=== PATIENT | female | born 1955 | race American Indian/Alaskan Native ===

== ENCOUNTER 2021-05-06 14:51 | Emergency (ER) | payer MEDICARE, MEDICAID ==
[2021-05-06 16:33] LABS: Hematocrit 38.8 % (30.3-42.9); Hemoglobin 12.6 gm/dl (10.1-14.3); Mean Corpuscular HGB Conc 33 % (30-34); Mean Corpuscular Volume 90 fl (79-97); Platelet Count 179 K/mm3 (140-440); Red Blood Count 4.34 M/mm3 (3.65-5.03)
[2021-05-06 16:47] LABS: Alanine Aminotransferase 125 units/L (7-56); Albumin 3.6 g/dL (3.9-5); BUN/Creatinine Ratio 16; Blood Urea Nitrogen 14 mg/dL (7-17); Calcium 10.2 mg/dL (8.4-10.2); Hemolysis Index 1
[2021-05-06 17:12] VITALS: BP 120/75
[2021-05-06 17:15] LABS: Bacteria,Urine 1+ /HPF (Negative); Bilirubin,Urine MOD (Negative); Blood,Urine NEG (Negative); Color,Urine Amber (Yellow); Hyaline Casts,Urine 25 /LPF; Mucus,Urine 3+ /HPF
[2021-05-06 17:22] LABS: Ictotest,Urine Positive (Negative)
--- NOTE | 2021-05-06 18:32 | Cat Scan Report ---
CT ABDOMEN AND PELVIS WITH CONTRAST INDICATION: n/v, epigastric abd pain 100 ML OMNI 300 . TECHNIQUE: Axial CT images were obtained through the abdomen and pelvis after 100 cc IV contrast. All CT scans at this location are performed using CT dose reduction for ALARA by means of automated exposure contr ol. COMPARISON: None available. FINDINGS: LOWER CHEST: No significant abnormality. LIVER: No significant abnormality. GALLBLADDER: Cholelithiasis BILE DUCTS: No significant abnormality. PANCREAS: No significant abnormality. SPLEEN: No significant abnormality. ADRENALS: No significant abnormality. RIGHT KIDNEY and URETER: No significant abnormality. LEFT KIDNEY and URETER: No significant abnormality. STOMACH and SMALL BOWEL: Donny-en-Y gastric bypass. COLON: No significant abnormality. APPENDIX: No significant abnormality. PERITONEUM: No free fluid. No free air. No fluid collection. LYMPH NODES: No significant adenopathy. AORTA and ARTERIES: No significant abnormality. IVC and VEINS: No significant abnormality. URINARY BLADDER: No significant abnormality. REPRODUCTIVE ORGANS: No significant abnormality. ADDITIONAL FINDINGS: None. SKELETAL SYSTEM: Mild to moderate scoliosis of lumbar spine with posterior fusion hardware L4-5. Mode rate degenerative arthrosis both hips IMPRESSION: 1. Cholelithiasis without CT evidence for cholecystitis. Signer Name: Robbi Diaz MD Signed: 05/06/2021 6:27 PM Workstation Name: [email or web address]
--- NOTE | 2021-05-06 19:26 | Emergency Department Report ---
ED General Adult HPI - General Chief complaint: Urogenital-Female Stated complaint: WEAKNESS, DEHYDRATED, HEADACHE, VOMITING Time Seen by Provider: 05/06/21 17:11 Source: patient Mode of arrival: Ambulatory Limitations: No Limitations - History of Present Illness Initial comments: Patient is a 65-year-old female presents emergency room complaints of fatigue and generalized weakness that began a month ago. States that she is also having intermittent vomiting. She states that it does not occur every day but every once in a while she had will have 1-2 episodes of vomiting. States that she began having diarrhea approximately 3 days ago. States that she has been having upper abdominal discomfort. she is also having suprapubic discomfort with uri [place]. She denies any fever, melena, hematochezia, hematemesis, dysuria, back pain, CP, SOB. She denies any medication allergies. - Related Data Previous Rx's Medication Instructions Recorded Last Taken Type Hyoscyamine Subl [Levsin Sl 0.125 0.125 mg SL Q6HR PRN #10 tab 05/06/21 Unknown Rx TAB] Ondansetron [Zofran Odt] 4 mg PO Q8HR PRN #10 tab.rapdis 05/06/21 Unknown Rx cephALEXin [Keflex] 500 mg PO BID 7 Days #14 cap 05/06/21 Unknown Rx ED Review of Systems ROS: Stated complaint: WEAKNESS, DEHYDRATED, HEADACHE, VOMITING Other details as noted in HPI Comment: All other systems reviewed and negative ED Past Medical Hx - Medications Home Medications: Home Medications Medication Instructions Recorded Confirmed Last Taken Type Hyoscyamine Subl [Levsin Sl 0.125 0.125 mg SL Q6HR PRN #10 tab 05/06/21 Unknown Rx TAB] Ondansetron [Zofran Odt] 4 mg PO Q8HR PRN #10 tab.rapdis 05/06/21 Unknown Rx cephALEXin [Keflex] 500 mg PO BID 7 Days #14 cap 05/06/21 Unknown Rx ED Physical Exam - General Limitations: No Limitations General appearance: alert, in no apparent distress - Head Head exam: Present: atraumatic, normocephalic - Eye Eye exam: Present: normal appearance - ENT ENT exam: Present: mucous membranes moist - Respiratory Respiratory exam: Present: normal lung sounds bilaterally. Absent: respiratory distress, wheezes, rales, rhonchi, stridor, chest wall tenderness, accessory muscle use, decreased breath sounds, prolonged expiratory - Cardiovascular Cardiovascular Exam: Present: regular rate, normal rhythm, normal heart sounds. Absent: systolic murmur, diastolic murmur, rubs, gallop - GI/Abdominal GI/Abdominal exam: Present: soft, tenderness (epigastric, RUQ), normal bowel sounds. Absent: distended, guarding, rebound, rigid - Neurological Exam Neurological exam: Present: alert, oriented X3 - Psychiatric Psychiatric exam: Present: normal affect, normal mood - Skin Skin exam: Present: warm, dry, intact ED Course Vital Signs 05/06/21 15:34 Temperature 97.4 F L Pulse Rate 95 H Respiratory 16 Rate Blood Pressure 120/75 O2 Sat by Pulse 99 Oximetry ED Medical Decision Making - Lab Data Result diagrams: 05/06/21 16:04 05/06/21 16:04 Lab Results 05/06/21 05/06/21 05/06/21 Range/Units 16:04 16:04 Unknown WBC 4.1 L (4.5-11.0) K/mm3 RBC 4.34 (3.65-5.03) M/mm3 Hgb 12.6 (10.1-14.3) gm/dl Hct 38.8 (30.3-42.9) % MCV 90 (79-97) fl MCH 29 (28-32) pg MCHC 33 (30-34) % RDW 16.0 H (13.2-15.2) % Plt Count 179 (140-440) K/mm3 Sodium 140 (137-145) mmol/L Potassium 4.2 (3.6-5.0) mmol/L Chloride 105.8 (98-107) mmol/L Carbon Dioxide 22 (22-30) mmol/L Anion Gap 16 mmol/L BUN 14 (7-17) mg/dL Creatinine 0.9 (0.6-1.2) mg/dL Estimated GFR > 60 ml/min BUN/Creatinine Ratio 16 % Glucose 98 (65-100) mg/dL Calcium 10.2 (8.4-10.2) mg/dL Total Bilirubin 1.00 (0.1-1.2) mg/dL AST 60 H (5-40) units/L ALT 125 H (7-56) units/L Alkaline Phosphatase 278 H (35-129) units/L Total Protein 7.5 (6.3-8.2) g/dL Albumin 3.6 L (3.9-5) g/dL Albumin/Globulin Ratio 0.9 % Urine Color Lexy (Yellow) Urine Turbidity Slightly-cloudy (Clear) Urine pH 5.0 (5.0-7.0) Ur Specific [place] 1.031 H (1.003-1.030) Urine Protein 100 mg/dl (Negative) mg/dL Urine Glucose (UA) Neg (Negative) mg/dL Urine Ketones Tr (Negative) mg/dL Urine Blood Neg (Negative) Urine Nitrite Neg (Negative) Urine Bilirubin Mod (Negative) Urine Ictotest Positive (Negative) Urine Urobilinogen 4.0 (<2.0) mg/dL Ur Leukocyte Esterase Sm (Negative) Urine WBC (Auto) 19.0 H (0.0-6.0) /HPF Urine RBC (Auto) 4.0 (0.0-6.0) /HPF U Epithel Cells (Auto) 13.0 (0-13.0) /HPF Urine Bacteria (Auto) 1+ (Negative) /HPF Hyaline Casts 25 /LPF Urine Mucus 3+ /HPF - Radiology Data Radiology results: report reviewed Ordering Physician: KASSIDY SWEENEY Date of Service: 05/06/21 Procedure(s): CT abdomen pelvis w con Accession Number(s): [id number] cc: KASSIDY SWEENEY CT ABDOMEN AND PELVIS WITH CONTRAST INDICATION: n/v, epigastric abd pain 100 ML OMNI 300 . TECHNIQUE: Axial CT images were obtained through the abdomen and pelvis after 100 cc IV contrast. All CT scans at this location are performed using CT dose reduction for ALARA by means of automated exposure control. COMPARISON: None available. FINDINGS: LOWER CHEST: No significant abnormality. LIVER: No significant abnormality. GALLBLADDER: Cholelithiasis BILE DUCTS: No significant abnormality. PANCREAS: No significant abnormality. SPLEEN: No significant abnormality. ADRENALS: No significant abnormality. RIGHT KIDNEY and URETER: No significant abnormality. LEFT KIDNEY and URETER: No significant abnormality. STOMACH and SMALL BOWEL: Donny-en-Y gastric bypass. COLON: No significant abnormality. APPENDIX: No significant abnormality. PERITONEUM: No free fluid. No free air. No fluid collection. LYMPH NODES: No significant adenopathy. AORTA and ARTERIES: No significant abnormality. IVC and VEINS: No significant abnormality. URINARY BLADDER: No significant abnormality. REPRODUCTIVE ORGANS: No significant abnormality. ADDITIONAL FINDINGS: None. SKELETAL SYSTEM: Mild to moderate scoliosis of lumbar spine with posterior fusion hardware L4-5. Moderate degenerative arthrosis both hips IMPRESSION: 1. Cholelithiasis without CT evidence for cholecystitis. Signer Name: Robbi Diaz MD Signed: 05/06/2021 6:27 PM Workstation Name: [id number] Transcribed By: TL Dictated By: Robbi Diaz MD Electronically Authenticated By: Robbi Diaz MD Signed Date/Time: 05/06/211826 DD/ 22 TD/TT: Ordering Physician: KASSIDY SWEENEY Date of Service: 05/06/21 Procedure(s): US abdomen limited Accession Number(s): [id number] cc: KASSIDY SWEENEY ULTRASOUND ABDOMEN, LIMITED (RIGHT UPPER QUADRANT) INDICATION: RUQ, epigastric abd pain, intermittent n/v. COMPARISON: None available. FINDINGS: Pancreas: Visualized portion shows no significant abnormality. Liver: Normal. Gallbladder: There appears to be a small amount of sludge dependently in the gallbladder. No stones or gallbladder wall thickening. No pericholecystic fluid. Bile ducts: Normal. Common Bile Duct measures 2 mm. Free fluid: None. Additional Findings: None. IMPRESSION: 1. Probable minimal gallbladder sludge. Otherwise unremarkable right upper quadrant ultrasound. Signer Name: Sam Ayon MD Signed: 05/06/2021 7:53 PM Workstation Name: [id number] Transcribed By: SW Dictated By: Sam Ayon MD Electronically Authenticated By: Sam Ayon MD Signed Date/Time: 05/06/211952 DD/ 50 TD/TT: - Medical Decision Making Patient is a 65-year-old female presents emergency room complaints of fatigue an d generalized weakness that began a month ago. States that she is also having intermittent vomiting. She states that it does not occur every day but every once in a while she had will have 1-2 episodes of vomiting. States that she began having diarrhea approximately 3 days ago. States that she has been having upper abdominal discomfort. she is also having suprapubic discomfort with urination. She denies any fever, melena, hematochezia, hematemesis, dysuria, back pain, CP, SOB. She denies any medication allergies. Vitals are stable. On exam patient has mild epigastric and right upper quadrant tenderness outpatient, no guarding, no rebound, no rigidity, normal bowel sounds, no peritoneal signs. Labs with elevation of ALT, AST, alk phos. UA shows evidence of UTI. CT abdomen pelvis with IV contrast: 1. Cholelithiasis without CT evidence for cholecystitis. RUQ US: 1. Probable minimal gallbladder sludge. Otherwise unremarkable right upper quadrant ultrasound. Discussed all results with patient and answer questions. Discussed the importance of outpatient primary care and GI follow-up. Advised patient that she need to be reexamined in the next 2 to 3 days. Discussed very strict return precautions in detail with patient. Advised patient Please take medication as prescribed. Increase your fluid intake over the next several days. Eat a bland liquid diet and slowly advance your diet as tolerated. Follow-up with your primary care doctor. Follow-up with GI doctor. Return to emergency room for any new or worsening symptoms. Critical care attestation.: If time is entered above; I have spent that time in minutes in the direct care of this critically ill patient, excluding procedure time. ED Disposition Clinical Impression: Generalized weakness, Nausea vomiting and diarrhea, Gallbladder sludge, Elevated LFTs Fatigue Qualifiers: Fatigue type: unspecified Qualified Code(s): R53.83 - Other fatigue UTI (urinary tract infection) Qualifiers: Urinary tract infection type: acute cystitis Hematuria presence: without hematuria Qualified Code(s): N30.00 - Acute cystitis without hematuria Abdominal pain Qualifiers: Abdominal location: upper abdomen, unspecified Qualified Code(s): R10.10 - Upper abdominal pain, unspecified Disposition: DC-01 TO HOME OR SELFCARE Is pt being admited?: No Does the pt Need Aspirin: No Condition: Stable Instructions: Abdominal Pain, Adult, [id number], Urinary Tract Infection, Adult Additional Instructions: Please take medication as prescribed. Increase your fluid intake over the next several days. Eat a bland liquid diet and slowly advance your diet as tolerat ed. Follow-up with your primary care doctor. Follow-up with GI doctor. Return to emergency room for any new or worsening symptoms. Prescriptions: cephALEXin [Keflex] 500 mg PO BID 7 Days #14 cap Hyoscyamine Subl [Levsin Sl 0.125 TAB] 0.125 mg SL Q6HR PRN #10 tab PRN Reason: diarrhea/abd cramping Ondansetron [Zofran Odt] 4 mg PO Q8HR PRN #10 tab.rapdis PRN Reason: nausea/vomiting Referrals: [facility] [Provider Group] - 2-3 Days your, primary care doctor [Other] - 2-3 Days Time of Disposition: 20:49 Print Language: FRENCH
--- NOTE | 2021-05-06 19:57 | Ultrasound Report ---
ULTRASOUND ABDOMEN, LIMITED (RIGHT UPPER QUADRANT) INDICATION: RUQ, epigastric abd pain, intermittent n/v. COMPARISON: None available. FINDINGS: Pancreas: Visualized portion shows no significant abnormality. Liver: Normal. Gallbladder: There appears to be a small amount of sludge dependently in the gallbladder. No stones o r gallbladder wall thickening. No pericholecystic fluid. Bile ducts: Normal. Common Bile Duct measures 2 mm. Free fluid: None. Additional Findings: None. IMPRESSION: 1. Probable minimal gallbladder sludge. Otherwise unremarkable right upper quadrant ultrasound. Signer Name: Sam Ayon MD Signed: 05/06/2021 7:53 PM Workstation Name: [id number]
== END 2021-05-06 21:10 | disposition home or self-care (01) ==
LOC: ED 14:51
DX: N39.0 Urinary tract infection, site not specified (principal); K82.8 Other specified diseases of gallbladder; R10.10 Upper abdominal pain, unspecified; R11.2 Nausea with vomiting, unspecified; R19.7 Diarrhea, unspecified; R53.1 Weakness; R53.83 Other fatigue; R79.89 Other specified abnormal findings of blood chemistry; Z79.899 Other long term (current) drug therapy
CPT/HCPCS: 36415; 74177; 76705; 80053; 81001; 85027; 87086; 99284; Q9967